=== PATIENT | male | born 1990 | race Caucasian/White ===

== ENCOUNTER 2020-12-15 18:56 | Emergency (ER) | payer BC, OTHER ==
[2020-12-15] MEDS ORDERED: Ketorolac 30 MG/ML SDV IM ONE (19:35)
[2020-12-15] MEDS ORDERED: Orphenadrine 60 MG/2 ML Inj IM ONE (19:35)
--- NOTE | 2020-12-15 19:43 | EDM.PDOC ---
ED HPI GENERAL MEDICAL PROBLEM - General Chief Complaint: Back Pain or Injury Stated Complaint: BACK PAIN Time Seen by Provider: 12/15/20 19:14 - History of Present Illness INITIAL COMMENTS - FREE TEXT/NARRATIVE: HISTORY AND PHYSICAL: History of present illness: This is a healthy 30-year-old gentleman who presents to the ER today from work secondary to injuring his back shortly prior to arrival. Patient reports that he bent over to lift up a box. Patient reports prior to lifting the box he felt excruciating pain from bending over. Patient reports pain is localized in the center of his lower back above his tailbone and radiates somewhat to the right side of his lower back. Patient denies any numbness, paresthesias, weakness to his upper or lower extremities. Patient denies any numbness or paresthesias to his perineal region. Patient denies any loss of bowel or bladder function. Patient denies any recent weight loss or weight gain. Review of systems: As per history of present illness and below otherwise all systems reviewed and negative. Past medical history: As per history of present illness and as reviewed below otherwise noncontributory. Surgical history: As per history of present illness and as reviewed below otherwise noncontributory. Social history: No reported history of drug abuse. Family history: As per history of present illness and as reviewed below otherwise noncontributory. Physical exam: This patient was seen and evaluated during the 2019 SARS-CoV-2 novel coronavirus pandemic period. Community viral transmission is ongoing at time of this encounter and the emergency department is operating under pandemic response procedures. Constitutional: Patient is oriented to person, place, and time. Appears well- developed and well-nourished. No distress. HEENT: Moist mucous membranes Head: Normocephalic and atraumatic Eyes: Right eye exhibits no discharge. Left eye exhibits no discharge. No scleral icterus Neck: Normal range of motion. No tracheal deviation present. Cardiovascular: Normal rate and regular rhythm. Pulmonary: Effort normal, no respiratory distress. Abdominal: No distention Musculoskeletal: Normal range of motion Neurologic: Alert and oriented to person, place and time. Skin: [place], warm and dry. Psychiatric: Normal mood and affect. Behavior is normal. Judgment and thought content normal. Nursing note and vital signs have been reviewed Patient has no C-spine T-spine tenderness to palpation. Patient has no left upper or right upper quadrant tenderness to palpation. Patient has no crepitus to palpation to the anterior chest wall. Patient is neurologically intact. Patient does not present with any signs or or symptoms that would be consistent with acute intracranial, intra-abdominal, intrathoracic, or long bone injury. All long bones have been palpated and range of motion been performed and there is no evidence of any acute pathology. Patient's ER physical exam is significant for tenderness to palpation to his lumbar spine at the level of approximately L4-L5. Patient does have tenderness to the right lateral L4-L5 region as well. Patient is a normal neurological exam. Patient is ambulating in the ED with normal gait. Patient is reproducible pain with rotation flexion extension of his back. Patient has no weakness identified to his lower or upper extremities. Deficits identified. Patient has no sensory Diagnostics: Lumbar spine: No evidence of acute pathology identified per Dr. Luna and reviewed with radiology report. Therapeutics: Toradol 30 IM, Norflex 60 IM Assessment and plan: This is a 30-year-old gentleman who presents ER today secondary to lower back injury while at work. Patient reports pain occurred acutely while bending over prior to lifting. At this time, patient has no evidence of acute bony pathology on x-ray. Patient was given ibuprofen and Flexeril prescriptions to go home with. Patient was given Toradol and Norflex IM in the ED. Patient does feel improved after the medication administration. Patient will be referred to occupational medicine clinic for further work restrictions. Reassessment at the time of disposition demonstrates that the patient is in no acute distress. The patient has remained stable throughout the entire ED visit and is without objective evidence for acute process requiring urgent intervention or hospitalization. The patient is stable for discharge, counseling is provided as documented above, discussed symptomatic treatment and specific conditions for return. I have spoken with the patient/caregiver and discussed todays findings, in a ddition to providing specific details for the plan of care. Questions are answered and there is agreement with the plan. Definitive disposition and diagnosis as appropriate pending reevaluation and r ana luisaiew of above. middle lower back Pain Score (Numeric/FACES): 5 - Related Data Allergies Allergy/AdvReac Type Severity Reaction Status Date / Time No Known Allergies Allergy Verified 12/15/20 19:31 Home Meds: Home Meds Cyclobenzaprine [Flexeril] 10 mg PO TID PRN #20 tab 12/15/20 [Rx] Ibuprofen 600 mg PO Q6HR PRN #30 tablet 12/15/20 [Rx] ED ROS GENERAL - Review of Systems Review Of Systems: See Below ED EXAM, GENERAL - Physical Exam Exam: See Below Course - Vital Signs Last Recorded V/S: Last Vital Signs Temp 98.5 F 12/15/20 19:28 Pulse 122 H 12/15/20 19:28 Resp 16 12/15/20 19:28 BP 131/80 12/15/20 19:28 Pulse Ox 96 12/15/20 19:28 - Orders/Labs/Meds Meds: Medications Discontinued Medications Generic Name Dose Route Start Last Admin Trade Name Freq PRN Reason Stop Dose Admin Ketorolac Tromethamine 30 mg 12/15/20 19:35 12/15/20 19:44 Ketorolac 30 Mg/Ml Sdv IM 12/15/20 19:36 30 mg ONETIME ONE Administration Orphenadrine Citrate 60 mg 12/15/20 19:35 12/15/20 19:44 Orphenadrine 60 Mg/2 Ml Inj IM 12/15/20 19:36 60 mg ONETIME ONE Administration Departure - Departure Time of Disposition: 20:38 Disposition: Refer to Observation Condition: Good Clinical Impression: Acute low back pain Qualifiers: Back pain laterality: midline Sciatica presence: without sciatica Qualified Code(s): M54.5 - Low back pain Lower back injury Qualifiers: Encounter type: initial encounter Qualified Code(s): S39.92XA - Unspecified injury of lower back, initial encounter - Discharge Information Instructions: Muscle Strain, [id number], Acute Back Pain, Adult Referrals: PCP,None [Primary Care Provider] - Forms: ED Department Discharge Additional Instructions: You were seen and evaluated in the ER today secondary to an injury to your lower back while at work. You have been given an injection of Toradol which is an anti-inflammatory medication as well as Norflex which is a muscle relaxant here in the ED. You will be sent home with a prescription for ibuprofen which is an anti-inflammatory medication and Flexeril which is a muscle relaxant to take at home. The x-rays of your back did not reveal any bony abnormalities however this does not rule out the possibility of a herniated disc or pinched nerve or ligament injury to your back. You will need to follow-up with occupational medicine for further work restrictions and recommendations. You will be given the phone number below. [facility] at [facility] [address] [place] [address] The following information is given to patients seen in the emergency department who are being discharged to home. This information is to outline your options for follow-up care. We provide all patients seen in our emergency department with a follow-up referral. The need for follow-up, as well as the timing and circumstances, are variable depending upon the specifics of your emergency department visit. If you don't have a primary care physician on staff, we will provide you with a referral. We always advise you to contact your personal physician following an emergency department visit to inform them of the circumstance of the visit and for follow-up with them and/or the need for any referrals to a consulting specialist. The emergency department will also refer you to a specialist when appropriate. This referral assures that you have the opportunity for follow-up care with a specialist. All of these measure are taken in an effort to provide you with optimal care, which includes your follow-up. Under all circumstances we always encourage you to contact your private physician who remains a resource for coordinating your care. When calling for follow-up care, please make the office aware that this follow-up is from your recent emergency room visit. If for any reason you are refused follow-up, please contact the [facility] Emergency Department at and asked to speak to the emergency department charge nurse. [facility] [address] [place] [id number] [facility] [address] [place] [address] Sepsis Event Note (ED) - Evaluation Sepsis Screening Result: No Definite Risk - Focused Exam Vital Signs: Vital Signs Temp Pulse Resp BP Pulse Ox 12/15/20 19:28 98.5 F 122 H 16 131/80 96
--- NOTE | 2020-12-15 20:27 | CR ---
INDICATION: Low back pain TECHNIQUE: Lumbar spine 3 view. COMPARISON: None FINDINGS: Bones: Alignment is normal. No fractures or significant bone lesions. Joints: Disc spaces and facets are unremarkable. Soft tissues: Unremarkable. IMPRESSION: Unremarkable lumbar spine. Dictated by Sania Ardon MD @ 12/15/2020 8:25:[address] Sania Ardon @ Dec 15 2020 8:25PM
== END 2020-12-15 20:50 | disposition home or self-care (01) ==
LOC: MW.ED 18:56
DX: M54.5 Low back pain (principal)
CPT/HCPCS: 72100; 96372; 99283; J1885; J2360